=== PATIENT | female | born 1975 | race Caucasian/White ===

== ENCOUNTER 2019-03-24 04:39 | Emergency (ER) | payer OTHER ==
[~2019-03-24] VITALS: Ht 180.3 cm; Wt 120.2 kg
[2019-03-24] MEDS ORDERED: MILLIPRED5 MG (04:46)
[2019-03-24] MEDS ORDERED: CELLCEPT250 MG (04:46)
[2019-03-24] MEDS ORDERED: AMOX-CLAV 875-1 EACH PO (05:29)
[2019-03-24] MEDS ORDERED: ORASEP SPRAY30 ML MM (05:29)
== END 2019-03-24 05:42 | disposition home or self-care (01) ==
LOC: ER 04:39
DX: J02.9 Acute pharyngitis, unspecified (principal)

== ENCOUNTER 2019-07-17 04:22 | Emergency (ER) | payer OTHER ==
[~2019-07-17] VITALS: Ht 180.3 cm; Wt 120.2 kg
[~2019-07-17 04:22] MED LIST: AMOX-CLAV 875-1 EACH PO; CELLCEPT250 MG; MILLIPRED5 MG; ORASEP SPRAY30 ML MM
[2019-07-17] MEDS ORDERED: CELLCEPT250 MG (04:43)
[2019-07-17] MEDS ORDERED: COZAAR25 MG (04:44)
== END 2019-07-17 13:50 | disposition home or self-care (01) ==
LOC: ER 04:22
DX: K29.60 Other gastritis without bleeding (principal); R10.11 Right upper quadrant pain